=== PATIENT | female | born 1995 | race Caucasian/White ===

== ENCOUNTER → 2019-11-22 19:10 | Outpatient (BNVA) | payer MEDICAID, SELFPAY | PROVIDERS: Family Provider Family Medicine; PCP Family Medicine; Visit Provider Nurse Practitioner | DX: N39.0 Urinary tract infection, site not specified (principal); R35.0 Frequency of micturition | CPT/HCPCS: 81000; 87086 ==

== ENCOUNTER → 2020-02-10 18:03 | Outpatient (BNVA) | payer MEDICAID, SELFPAY | PROVIDERS: Family Provider Family Medicine; PCP Family Medicine; Visit Provider Nurse Practitioner Family | DX: N39.0 Urinary tract infection, site not specified (principal) | CPT/HCPCS: 81000; 87086 ==

== ENCOUNTER → 2020-05-13 18:06 | Outpatient (BNVA) | payer MEDICAID, SELFPAY | PROVIDERS: Family Provider Family Medicine; PCP Family Medicine; Visit Provider Nurse Practitioner | DX: N39.0 Urinary tract infection, site not specified (principal) | CPT/HCPCS: 81000; 87077; 87086; 87184 ==

== ENCOUNTER → 2020-06-12 16:08 | Outpatient (BNVA) | payer MEDICAID, SELFPAY | PROVIDERS: Family Provider Family Medicine; PCP Family Medicine; Visit Provider Nurse Practitioner Family | DX: N39.0 Urinary tract infection, site not specified (principal) | CPT/HCPCS: 81000; 87086 ==

== ENCOUNTER → 2020-09-21 17:59 | Outpatient (BNVA) | payer MEDICAID, SELFPAY | PROVIDERS: Family Provider Family Medicine; PCP Family Medicine; Visit Provider Registered Nurse Neonatal Intensive Care | DX: N39.0 Urinary tract infection, site not specified (principal) | CPT/HCPCS: 81000; 87086 ==

== ENCOUNTER → 2021-05-09 00:01 | Outpatient (BNVA) | payer MEDICAID, SELFPAY | PROVIDERS: Family Provider Family Medicine; PCP Family Medicine; Visit Provider Nurse Practitioner | DX: Z20.822 Contact with and (suspected) exposure to COVID-19 (principal) | CPT/HCPCS: 87635 ==

== ENCOUNTER → 2021-06-15 12:10 | Outpatient (BNVA) | payer MEDICAID, SELFPAY | PROVIDERS: Family Provider Family Medicine; PCP Family Medicine; Visit Provider Registered Nurse Neonatal Intensive Care | DX: N39.0 Urinary tract infection, site not specified (principal) | CPT/HCPCS: 81000 ==

== ENCOUNTER 2022-06-06 11:10 | Emergency (ER) | payer BC, MEDICAID, SELFPAY ==
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
[2022-06-06 11:21] VITALS: BP 115/94; PULSE 129; RESP 18; TEMP 37.1; O2SAT 94; BMI 39.1
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
[2022-06-06 11:45] LABS: ABG PCO2 38.7 mmHg (35-45); ABG PH Result 7.42 (7.35-7.45); Alveolar-Arterial Oxygen Gradi 4.4 mmHg (5-10); Base Excess ABG 0.5 mmol/L (-2.0-2.0); Blood Gas Allen Test Pos; Blood Gas Sample Site Radial, left; Blood Gas Sample Type Arterial; Carboxyhemoglobin 1.2 %THgb (0.4-20.1); Ionized Calcium Level - ABG 1.2 mmol/L (1.1-1.4); Methemoglobin 0.3 % (0.4-1.5); Oxygen Saturation ABG 94.4; PO2 ABG 69.7 mmHg (80.0-100.0); Potassium Level - ABG 3.6 mmol/L (3.5-5.0); Total Hemoglobin 14.3 g/dL (12-16)
[2022-06-06] MEDS: LORazepam 0.5 mg Tablet PO (11:59)
[2022-06-06 12:27] VITALS: PULSE 111; RESP 18; O2SAT 98
[2022-06-06] MEDS: ipratropium 0.5 mg/2.5 mL Neb INHALATION (12:27)
[2022-06-06] MEDS: albuterol 2.5 mg/3 mL Neb INHALATION (12:27)
[2022-06-06 12:29] VITALS: BP 106/84; PULSE 116; O2SAT 99
[2022-06-06 12:30] VITALS: PULSE 115
[2022-06-06] MEDS: predniSONE 20 mg Tablet 40 MG PO (13:32)
== END 2022-06-06 13:35 | disposition home or self-care (01) ==
PROVIDERS: Emergency Provider Emergency Medicine; PCP Family Medicine
DX: T59.811A Toxic effect of smoke, accidental (unintentional), initial encounter (principal); X08.8XXA Exposure to other specified smoke, fire and flames, initial encounter
CPT/HCPCS: 36600; 71045; 80051; 82330; 82805; 94640; 99283; J7512; J7613; J7644

== ENCOUNTER → 2022-10-27 14:23 | Outpatient (BNVA) | payer BC, MEDICAID, SELFPAY | PROVIDERS: PCP Family Medicine; Visit Provider Nurse Practitioner Family | DX: R39.9 Unspecified symptoms and signs involving the genitourinary system (principal); R10.30 Lower abdominal pain, unspecified; R30.0 Dysuria | CPT/HCPCS: 81000; 81025; 87086 ==

== ENCOUNTER 2023-01-15 10:19 | Emergency (ER) | payer BC, MEDICAID, SELFPAY ==
[2023-01-15 10:42] VITALS: BP 144/93; PULSE 82; RESP 17; TEMP 36.7; O2SAT 99
--- NOTE | 2023-01-15 10:45 | CTR_ITS ---
PROCEDURE INFORMATION: Exam: CT Abdomen And Pelvis Without Contrast Exam date and time: 01/15/2023 11:13 AM Age: 27 years old Clinical indication: Abdominal pain; Other: Micah flank; Prior surgery; Surgery date: 6+ months; Surgery type: Gb; Additional info: [place] pain TECHNIQUE: Imaging protocol: Computed tomography of the abdomen and pelvis without contrast. Radiation optimization: All CT scans at this facility use at least one of these dose optimization techniques: automated exposure control; mA and/or kV adjustment per patient size (includes targeted exams where dose is matched to clinical indication); or iterative reconstruction. REPORTING DATA: Count of CT and Cardiac NM exams in prior 12 months: This patient has received 0 known CTs and 0 known cardiac nuclear medicine studies in the 12 months prior to the current study. COMPARISON: CR XR chest 1V portable [id number] 06/06/2022 11:46 AM RADIATION DOSE METRICS: Total DLP (mGy-cm): 1041.42 FINDINGS: Lungs: Lung bases are clear. Liver: The liver is normal. Gallbladder and bile ducts: There is no intrahepatic or extrahepatic bile duct dilation. The gallbladder is absent. Pancreas: The pancreas is unremarkable. Spleen: The spleen is unremarkable. Adrenal glands: The adrenal glands are unremarkable. Kidneys and ureters: There is a 1 mm nonobstructive interpolar collecting system stone on the left. No stones on the right. No hydronephrosis or ureteral dilation. Stomach and bowel: The stomach is unremarkable. The small bowel is nondilated. The proximal ascending colon contains stool. More distally the ascending colon is decompressed. The transverse colon is predominantly decompressed but contains a small amount of stool. The descending colon is completely decompressed as is the sigmoid and rectum. Mucosal evaluation is limited due to luminal decompression and lack of IV contrast. Appendix: The appendix is absent. Intraperitoneal space: There is no free air or significant intraperitoneal free fluid. Vasculature: The aorta is unremarkable. There is no aneurysm. Lymph nodes: There is no lymphadenopathy in the retroperitoneum, mesentery, pelvis or inguinal regions. Urinary bladder: The bladder is nondistended. Mild pericystic edema is visible on coronal and sagittal images. Reproductive: The uterus is unremarkable. There is no adnexal mass or large cyst. Bones/joints: Visible ribs are intact. The lumbar spine is unremarkable. There are intact screws traversing the left SI joint. There are healed left sacral alar fractures. SI joints are symmetric in width but mildly irregular on the left. There are healed left superior and inferior pubic fractures. Hips are normal. Proximal femora are intact. Soft tissues: The abdominal wall is intact. CT/CT kidney stone [id number] IMPRESSION: 1. No obstructive uropathy. 1 mm left intrarenal stone. 2. Pericystic edema suggests cystitis. Correlate with urinalysis. 3. Decompressed colon with limited mucosal assessment due to luminal decompression and lack of IV contrast. Mild colitis cannot be excluded. 4. Incidental findings above.
--- NOTE | 2023-01-15 10:50 | W.ED.ABDPA2 ---
HPI - Abdominal Pain General: Chief Complaint: Abdominal Pain Stated Complaint: low abd pain/low back pain Time Seen by Provider: 01/15/23 10:21 Source: patient Mode of arrival: ambulatory Limitations: no limitations History of Present Illness: 19-year-old female states that over the last 2 days she has been having lower abdominal pain with some low back pain as well. States been a sharp pain she also has had dysuria states that every time she goes she feels like she really has to push she been having increased urinary frequency as well as she states she had UTIs this feels similar but worse. She denies any fevers denies any vomiting or diarrhea. Associated Symptoms: Reports dysuria; Denies chills, diarrhea, fever(s), nausea and vomiting Review of Systems Const: Denies: fever(s), chills, body aches or change in appetite ENMT: Denies: throat pain or dental pain Card: Denies: chest pain Resp: Denies: dyspnea GI: Reports: abdominal pain; Denies: nausea, vomiting or diarrhea : Reports: dysuria Musc: Reports: back pain; Denies: neck pain Skin/Breast: Denies: rash Neuro: Denies: headache(s) PFSH ED PFSH: Medical History IUP (intrauterine ), incidental Social History Smoking and tobacco status: never smoked Physical Exam Const: COMMON NORMALS: no acute distress, patient oriented x3 and healthy appearing HENMT: COMMON NORMALS: normocephalic and atraumatic HEAD & SCALP: normocephalic and atraumatic Neck/C-Spine: COMMON NORMALS: full ROM and supple Chest: COMMONS NORMALS: normal inspection of the chest Resp: COMMON NORMALS: normal respiratory effort and No use of accessory muscles Cardio: COMMON NORMALS: regular rate, regular rhythm and No murmurs present (Cardio) RATE: regular rate RHYTHM: regular rhythm GI: COMMON NORMALS: Normal to inspection, nondistended, normoactive bowel sounds present, Soft to palpation, non-tender and no masses PALPATION: Yes Soft to palpation Extremity: COMMON NORMALS: normal to inspection and full ROM Neuro: COMMON NORMALS: patient oriented x3, moves all extremities and no focal motor deficits Psych: COMMON NORMALS: mental status grossly normal, Normal thought process present and cooperative THOUGHT PROCESS: Normal thought process present Skin: COMMON NORMALS: no rashes or lesions noted and no wounds GENERAL SKIN EXAM: no rashes or lesions noted Course Vital Signs: Vital signs: Vital Signs Temperature 98.0 F 01/15/23 10:42 Pulse Rate 74 01/15/23 12:29 Respiratory Rate 14 01/15/23 11:47 Blood Pressure 125/78 01/15/23 12:29 Pulse Oximetry 97 01/15/23 12:29 Oxygen Delivery Me thod Room Air 01/15/23 12:29 MDM - Abdominal Pain Medical Decision Making Patient presents here with acute cystitis likely causing her symptoms blood work here is normal CT shows no signs of a kidney stone we will give her Rocephin here started on Keflex she is to follow-up with PCP and return if worsening. Lab Data 01/15/23 11:38 01/15/23 11:38 Labs/Radiology: Radiology Impressions Abdomen/Pelvis CT 01/15/23 10:45 IMPRESSION: 1. No obstructive uropathy. 1 mm left intrarenal stone. 2. Pericystic edema suggests cystitis. Correlate with urinalysis. 3. Decompressed colon with limited mucosal assessment due to luminal decompression and lack of IV contrast. Mild colitis cannot be excluded. 4. Incidental findings above. Laboratory Results WBC 11.81 10^3/uL (3.29-11.43) H 01/15/23 11:38 Corrected WBC Cancelled 01/15/23 11:00 RBC 4.89 10^6/uL (3.85-5.65) 01/15/23 11:38 Hgb 15.30 g/dL (11.27-16.99) 01/15/23 11:38 Hct 45.9 % (36-47) 01/15/23 11:38 MCV 93.9 fl (85-98) 01/15/23 11:38 MCH 31.3 pg (27-33) 01/15/23 11:38 MCHC 33.3 g/dL (30-55) 01/15/23 11:38 RDW 12.2 % (12.1-15.1) 01/15/23 11:38 Plt Count 200 10^3/cmm (157-399) 01/15/23 11:38 MPV 10.1 fL (7.4-10.4) 01/15/23 11:38 Gran % Cancelled 01/15/23 11:00 Neut % (Auto) 84.8 % 01/15/23 11:38 Lymph % (Auto) 10.3 % 01/15/23 11:38 [place] % (Auto) 3.7 % 01/15/23 11:38 Eos % (Auto) 0.7 % 01/15/23 11:38 Baso % (Auto) 0.2 % 01/15/23 11:38 Neut # (Auto) 10.02 10^3/uL (1.8-7.7) H 01/15/23 11:38 Lymph # (Auto) 1.2 10^3/uL (0.8-4.8) 01/15/23 11:38 [place] # (Auto) 0.4 10^3/uL (0.2-0.9) 01/15/23 11:38 Eos # (Auto) 0.1 10^3/uL (0.0-0.8) 01/15/23 11:38 Baso # (Auto) 0.0 10^3/uL (0.0-0.1) 01/15/23 11:38 Absolute Gran (auto) Cancelled 01/15/23 11:00 Nucleated RBC % (auto) 0 % 01/15/23 11:38 Nucleated RBCs # 0.0 /100WBC 01/15/23 11:38 Sodium 141 mmol/L (136-145) 01/15/23 11:38 Potassium 4.7 mmol/L (3.5-5.1) 01/15/23 11:38 Chloride 105 mmol/L (98-107) 01/15/23 11:38 Carbon Dioxide 27 mmol/L (22-29) 01/15/23 11:38 Anion Gap 13.7 (5-19) 01/15/23 11:38 BUN 11 mg/dL (6-20) 01/15/23 11:38 Creatinine 0.8 mg/dL (0.5-0.9) 01/15/23 11:38 GFR Calculation 85.4 mL/min (90-130) L 01/15/23 11:38 Glucose 106 mg/dL (65-115) 01/15/23 11:38 Calculated Osmolality 292 mOsm/kg (285-295) 01/15/23 11:38 Calcium 8.8 mg/dL (8.5-10.5) 01/15/23 11:38 Total Bilirubin 0.9 mg/dL (0.15-1.2) 01/15/23 11:38 AST 29 U/L (0-32) 01/15/23 11:38 ALT 17 U/L (0-33) 01/15/23 11:38 Alkaline Phosphatase 120 U/L (35-105) H 01/15/23 11:38 Total Protein 6.8 g/dL (6.6-8.7) 01/15/23 11:38 Albumin 4.4 g/dL (3.5-5.2) 01/15/23 11:38 Globulin 2.4 g/dL (1.3-4.6) 01/15/23 11:38 Lipase 21 U/L (13-60) 01/15/23 11:38 HCG, Qual Negative (Negative) 01/15/23 11:38 Urine Color [place] (Yellow) A 01/15/23 12:10 Urine Appearance Hazy (CLEAR) A 01/15/23 12:10 Urine pH TNP 01/15/23 12:10 Ur Specific [place] TNP 01/15/23 12:10 Urine Protein TNP 01/15/23 12:10 Urine Glucose (UA) TNP 01/15/23 12:10 Urine Ketones TNP 01/15/23 12:10 Urine Blood TNP 01/15/23 12:10 Urine Nitrate TNP 01/15/23 12:10 Urine Bilirubin TNP 01/15/23 12:10 Prot Sulfosalicylic Acd TNP 01/15/23 12:10 Urine Urobilinogen TNP 01/15/23 12:10 Ur Leukocyte Esterase TNP 01/15/23 12:10 Urine RBC 10-15 /hpf (0-2) H 01/15/23 12:10 Urine WBC Too numerous to cnt /hpf (0-5) H 01/15/23 12:10 Ur Squamous Epith Cells 0-4 /hpf (0-5) H 01/15/23 12:10 Amorphous Sediment Not Reportable 01/15/23 12:10 Urine Bacteria 2+ /hpf (NONE) H 01/15/23 12:10 Discharge Plan Discharge Patient Disposition: Home Clinical Impression: Acute cystitis Condition: Stable Prescriptions: New cephalexin 500 mg capsule 500 mg PO TID 7 Days Qty: 21 0RF No Action doxepin 50 mg capsule 50 mg PO DAILY sertraline 100 mg tablet 100 mg PO DAILY lorazepam 1 mg tablet 1 mg PO BID PRN pantoprazole [Protonix] 40 mg tablet,delayed release (DR/EC) 40 mg PO DAILY fluticasone propionate 50 mcg/actuation spray,suspension 1 spray intranasal DAILY Qty: 16 0RF Rx Instructions: administer into each nostril loratadine [Allergy Relief (loratadine)] 10 mg tablet 10 mg PO DAILY 30 Days Qty: 30 0RF Discharge Orders: Discharge ED (Routine); Ordered 01/15/23 Ordered By: Damián Taylor Referrals: Makenzie Cruz DO [Primary Care Provider] - 1-3 days Discharge Diet: Advance as tolerated Discharge Activity: Resume usual activity Patient Instructions: Urinary Tract Infection in Women (ED) Coding Level of Care Code ED Shoulder Sawyer for Ravindra Lai
[2023-01-15 11:47] VITALS: RESP 14; O2SAT 98
[2023-01-15 11:47] LABS: Basophils % 0.2 %; Eosinophils # 0.1 10^3/uL (0.0-0.8); Eosinophils % 0.7 %; Hematocrit 45.9 % (36-47); Lymphocytes # 1.2 10^3/uL (0.8-4.8); Lymphocytes % 10.3 %; Mean Corpuscular HGB Conc 33.3 g/dL (30-55); Mean Corpuscular Hemoglobin 31.3 pg (27-33); Mean Corpuscular Volume 93.9 fl (85-98); Mean Platelet Volume 10.1 fL (7.4-10.4); Monocytes # 0.4 10^3/uL (0.2-0.9); Monocytes % 3.7 %; Neutrophils # 10.02 10^3/uL (1.8-7.7); Neutrophils % 84.8 %; Nucleated Red Blood Cells % 0 %; Platelet Count 200 10^3/cmm (157-399); Red Blood Count 4.89 10^6/uL (3.85-5.65); Red Cell Distribution Width 12.2 % (12.1-15.1); White Blood Count 11.81 10^3/uL (3.29-11.43)
[2023-01-15] MEDS: ondansetron 2 mg/ML SDV 2 mL 4 MG IM (11:47)
[2023-01-15] MEDS: morphine 4 mg/mL SDV 1 mL IM (11:47)
[2023-01-15 12:04] LABS: Alanine Aminotransferase 17 U/L (0-33); Albumin Level 4.4 g/dL (3.5-5.2); Alkaline Phosphatase 120 U/L (35-105); Anion Gap 13.7 (5-19); Aspartate Amino Transferase 29 U/L (0-32); Blood Urea Nitrogen 11 mg/dL (6-20); Calcium 8.8 mg/dL (8.5-10.5); Carbon Dioxide 27 mmol/L (22-29); Chloride 105 mmol/L (98-107); Globulin 2.4 g/dL (1.3-4.6); Glomerular Filtration Rate 85.4 mL/min (90-130); Glucose 106 mg/dL (65-115); Lipase 21 U/L (13-60); Osmolality Calculated 292 mOsm/kg (285-295); Potassium 4.7 mmol/L (3.5-5.1); Sodium 141 mmol/L (136-145); Total Bilirubin 0.9 mg/dL (0.15-1.2); Total Protein 6.8 g/dL (6.6-8.7)
[2023-01-15 12:14] LABS: HCG, Serum Qual Negative (Negative)
[2023-01-15 12:29] VITALS: BP 125/78; PULSE 74; O2SAT 97
[2023-01-15 13:01] LABS: Urine Appearance Hazy (CLEAR); Urine Color Orange (Yellow)
[2023-01-15 13:02] LABS: Add Urine Microscopic? YES
[2023-01-15 13:05] LABS: Bacteria Urine 2+ /hpf; Squamous Epithelial Cell Urine 0-4 /hpf (0-5); WBC Urine TOO NUMEROUS TO CNT /hpf (0-5)
[2023-01-15 13:06] LABS: Add Urine Culture? Yes
[2023-01-15] MEDS: cefTRIAXone 1,000 MG in water for injection-sterile 2.1 ML 1 MG IM (13:33)
[2023-01-15 13:41] VITALS: BP 103/80; PULSE 81; RESP 14; O2SAT 96
== END 2023-01-15 13:48 | disposition home or self-care (01) ==
PROVIDERS: Emergency Provider Emergency Medicine; PCP Family Medicine
DX: N30.00 Acute cystitis without hematuria (principal)
CPT/HCPCS: 36415; 74176; 80053; 81001; 83690; 84703; 85025; 87086; 96372; 99284; J0696; J2270; J2405

== ENCOUNTER → 2023-05-10 13:02 | Outpatient (BNVA) | payer BC, MEDICAID, SELFPAY | PROVIDERS: PCP Family Medicine; Visit Provider Nurse Practitioner | DX: J06.9 Acute upper respiratory infection, unspecified (principal); J11.1 Influenza due to unidentified influenza virus with other respiratory manifestations | CPT/HCPCS: 87400 ==

== ENCOUNTER → 2023-06-25 11:15 | Outpatient (BNVA) | payer BC, MEDICAID, SELFPAY | PROVIDERS: PCP Family Medicine; Visit Provider Nurse Practitioner Family | DX: R10.9 Unspecified abdominal pain (principal) | CPT/HCPCS: 81000; 87086 ==

== ENCOUNTER → 2023-07-21 12:27 | Outpatient (BNVA) | payer BC, MEDICAID, SELFPAY | PROVIDERS: PCP Family Medicine; Visit Provider Emergency Medicine | DX: Z20.828 Contact with and (suspected) exposure to other viral communicable diseases (principal); R51.9 Headache, unspecified; J10.1 Influenza due to other identified influenza virus with other respiratory manifestations | CPT/HCPCS: 87400 ==

== ENCOUNTER → 2023-09-01 16:41 | Outpatient (BNVA) | payer BC, MEDICAID, SELFPAY | PROVIDERS: PCP Family Medicine; Visit Provider Emergency Medicine | DX: R39.9 Unspecified symptoms and signs involving the genitourinary system (principal) | CPT/HCPCS: 81000; 87086 ==

== ENCOUNTER → 2024-01-09 17:22 | Outpatient (BNVA) | payer BC, MEDICAID, SELFPAY | PROVIDERS: PCP Family Medicine; Visit Provider Registered Nurse Neonatal Intensive Care | DX: R39.9 Unspecified symptoms and signs involving the genitourinary system (principal) | CPT/HCPCS: 81000 ==

== ENCOUNTER → 2024-01-19 19:18 | Outpatient (BNVA) | payer BC, MEDICAID, SELFPAY | PROVIDERS: PCP Family Medicine; Visit Provider Registered Nurse Neonatal Intensive Care | DX: R30.0 Dysuria (principal); N39.0 Urinary tract infection, site not specified | CPT/HCPCS: 81000; 87086; 87491; 87591 ==